=== PATIENT | male | born 1960 | race Caucasian/White ===

== ENCOUNTER 2023-02-25 09:05 | Outpatient (CLI) | payer MEDICARE, BC ==
[2023-02-25] VITALS (7 sets, daily range): BP systolic 145–161; BP diastolic 68–88; PULSE 70–98; RESP 20; O2SAT 97–98
[~2023-02-25] VITALS: Ht 180.3 cm; Wt 100.0 kg
[~2023-02-25 09:05] MED LIST: ALBU6.7H14 IH; ALLO100T PO; AMLO5TAB16 PO; CAPT25TA3 PO; CARV25TA3 PO; CLON1PAT15 TP; CLOP75TA34 PO; DAPA10TA PO; EVOL140P3 SQ; FLO0.4C PO; FLUT1BLS3 INH; FURO20TA4 PO; GLIM4TAB7 PO; HYDR-4069 PO; PANT40TA54 PO; SACU1TAB PO; SEMA1PEN3 SQ; SPIR25TA5 PO
[2023-02-25] MEDS ORDERED: regadenoson 0.4mg/5ml syringe IV ONE (10:45)
[2023-02-25] MEDS ORDERED: aminophylline 250mg/10ml inj. IV ONE (10:45)
[2023-02-25] MEDS ORDERED: nitroGLYCERIN 0.4mg SUBLingual tab SL PRN (11:00)
== END 2023-02-25 23:59 | disposition home or self-care (01) ==
LOC: RAD 09:05
PROVIDERS: ATTEND Internal Medicine Cardiovascular Disease
DX: R94.31 Abnormal electrocardiogram [ECG] [EKG] (principal)
CPT/HCPCS: 78452; 93017; A9500; J0280; J2785

== ENCOUNTER 2024-03-30 13:27 | Inpatient (IN) | payer MEDICARE, OTHER ==
[~2024-03-30] VITALS: Ht 180.3 cm; Wt 116.0 kg
[~2024-03-30 13:27] MED LIST changes: -HYDR-4069 PO; +HYDR25TA90 PO
[2024-03-30] MEDS ORDERED: BUME1TAB34 PO (14:16)
[2024-03-30] MEDS ORDERED: TIRZ5PEN SQ (14:16)
[2024-03-30] MEDS ORDERED: PRAV40TA3 PO (14:16)
[2024-03-30] MEDS ORDERED: LANTUS (14:16)
[2024-03-30] MEDS ORDERED: BLOO-1948 (14:16)
[2024-03-30 14:23] LABS: BASOPHILS # (AUTO) 0.1 X10'3 (0-0.2); BASOPHILS % (AUTO) 1.3 % (0-1); EOSINOPHILS # (AUTO) 0.1 X10'3 (0-0.9); EOSINOPHILS % (AUTO) 1.7 % (0-6); HEMATOCRIT 42.6 % (42.0-52.0); HEMOGLOBIN 14.6 g/dl (14.0-17.9); LYMPHOCYTES # (AUTO) 0.8 X10'3 (1.1-4.8); LYMPHOCYTES % (AUTO) 12.2 % (21-51); MEAN CORPUSCULAR HEMOGLOBIN 29.6 PG (27.0-31.0); MEAN CORPUSCULAR HGB CONC 34.4 g/dL (33.0-36.5); MEAN CORPUSCULAR VOLUME 86.1 FL (78-98); MEAN PLATELET VOLUME 9.4 FL (7.4-10.4); MONOCYTES # (AUTO) 0.3 X10'3 (0-0.9); MONOCYTES % (AUTO) 4.8 % (2-12); NEUTROPHILS # (AUTO) 5.4 X10'3 (1.8-7.7); PLATELET COUNT 289 X10'3 (140-440); RED BLOOD COUNT 4.94 X10'6 (4.70-6.10); RED CELL DISTRIBUTION WIDTH 15.2 % (11.5-14.5); WHITE BLOOD COUNT 6.7 X10'3 (4.5-11.0)
[2024-03-30 14:36] LABS: ALANINE AMINOTRANSFERASE 34 U/L (12-78); ALBUMIN 3.5 G/DL (3.4-5.0); ALKALINE PHOSPHATASE 91 IU/L (46-116); ANION GAP 11 (8-16); ASPARTATE AMINO TRANSFERASE 21 U/L (10-37); BLOOD UREA NITROGEN 26 MG/DL (7-18); BUN/CREATININE RATIO 15.8 (10.0-20.0); CALCIUM 8.9 MG/DL (8.5-10.1); CHLORIDE 104 MMOL/L (99-107); CREATININE 1.65 MG/DL (0.60-1.10); GLUCOSE 201 MG/DL (70-104); POTASSIUM 3.4 MMOL/L (3.5-5.1); SODIUM 140 MMOL/L (135-145); TOTAL CARBON DIOXIDE 25.5 MMOL/L (24-32); TOTAL PROTEIN 7.1 G/DL (6.4-8.2); eCRCL 48 ML/MIN; eGFR 42 ML/MIN
[2024-03-30 14:47] LABS: PRO BRAIN NATRIURETIC PEPTIDE 14909 PG/ML (0-125)
[2024-03-30] MEDS ORDERED: heparin 10,000 units/1 ML INJ IV ONE (15:05)
[2024-03-30] MEDS ORDERED: heparin 25,000 UNIT/250ml bag 250 ML IV PRN (15:15)
[2024-03-30] MEDS ORDERED: albuterol 2.5 MG/3 ML nebule NEB PRN (15:30)
[2024-03-30 15:40] LABS: APTT 25 SECONDS (22-32); PROTHROMBIN TIME 10.9 SECONDS (9.0-12.0)
[2024-03-30] MEDS: heparin 10,000 units/1 ML INJ IV ONE (16:00)
[2024-03-30] MEDS: heparin 25,000 UNIT/250ml bag 250 ML IV PRN (16:02)
[2024-03-30] MEDS: acetaminophen 325mg tablet PO ONE (16:03)
[2024-03-30] MEDS: MESSAGE TO NURSING IV ONE ×2 (16:05→23:14)
[2024-03-30] MEDS ORDERED: acetaminophen 1,000mg/100ml IV 100 ML IV PRN (16:15)
[2024-03-30] MEDS ORDERED: acetaminophen 325mg tablet PO PRN (17:00)
[2024-03-30] MEDS ORDERED: magnesium hydroxide 30ml (MOM) UD suspension PO PRN (17:00)
[2024-03-30] MEDS ORDERED: magnesium Cl slow-release 64mg tablet PO PRN (17:00)
[2024-03-30] MEDS ORDERED: diphenhydrAMINE 25mg capsule PO PRN (17:00)
[2024-03-30] MEDS ORDERED: potassium Cl 20 mEq SR tablet PO PRN ×2 (17:00)
[2024-03-30] MEDS ORDERED: HYDROmorphone inj. 0.5 MG/0.5 ML DISP.SYRIN IV PRN (17:00)
[2024-03-30] MEDS ORDERED: ondansetron 4mg rapidly disintigrating tab PO PRN (17:00)
[2024-03-30] MEDS ORDERED: bisacodyl 10mg suppository rectal RC PRN (17:00)
[2024-03-30] MEDS ORDERED: magnesium sulf-water 4G/100mL 100 ML IV PRN (17:00)
[2024-03-30] MEDS ORDERED: diphenhydrAMINE 50 mg/ml inj IV PRN (17:00)
[2024-03-30] MEDS ORDERED: morphine 2 MG/ML inj. syringe IV PRN (17:00)
[2024-03-30] MEDS ORDERED: ondansetron/PF 4mg/2ml inj IV PRN (17:00)
[2024-03-30] MEDS ORDERED: potassium Cl 40MEQ/1/2NS 520ml 520 ML IV PRN (17:00)
[2024-03-30] MEDS ORDERED: magnesium sulf-water 2g/50mL 50 ML IV PRN (17:00)
[2024-03-30] MEDS ORDERED: mag hydrox/Alum hydrox/simeth 30ml oral suspension PO PRN (17:00)
[2024-03-30] MEDS ORDERED: DEXTROSE 15 GM of carb/4 tabs (each vial/BOTTLE has 4 tablets) PO PRN ×2 (17:15)
[2024-03-30] MEDS ORDERED: glucagon, human recombinant 1mg kit SUBCUT PRN (17:15)
[2024-03-30] MEDS ORDERED: dextrose 50%-water 50ml dispensing syringe IV PRN ×2 (17:15)
[2024-03-30] MEDS: normal saline 1000ml 1,000 ML IV SCH (17:42)
[2024-03-30 17:56] LABS: D-DIMER 1.72 MG/L FEU (0-0.50)
[2024-03-30 18:06] LABS: MAGNESIUM 1.9 MG/DL (1.5-2.4); PHOSPHORUS 3.4 MG/DL (2.3-4.5)
[2024-03-30 18:09] LABS: HEMOGLOBIN A1C 6.2 % (4.5-6.2)
[2024-03-30 18:22] LABS: BILIRUBIN,URINE NEGATIVE (Neg); CLARITY,URINE CLEAR (Clear); COLOR,URINE STRAW (Yellow); GLUCOSE, URINE >=1000 mg/dl (Neg); KETONES,URINE NEGATIVE (Neg); LEUKOCYTE ESTERASE ,URINE NEGATIVE (Neg); NITRITES, URINE NEGATIVE (Neg); OCCULT BLOOD,URINE NEGATIVE (Neg); PROTEIN,URINE NEGATIVE (Neg); UROBILINOGEN,URINE 0.2 E.U/dL (0.2-1.0)
[2024-03-30 18:31] LABS: UA COLLECTION TYPE URINAL
[2024-03-30 18:33] LABS: BACTERIA,URINE FEW /HPF (Neg); RBC,URINE NONE SEEN /HPF (0-2); SQUAMOUS EPITHELIAL CELL,UR NONE SEEN /LPF (FEW); WBC,URINE NONE SEEN /HPF (0-4)
[2024-03-30 18:34] LABS: MUCUS STRANDS NONE SEEN /LPF (Neg)
[2024-03-30 18:45] LABS: THYROID STIMULATING HORMONE 1.58 ulU/ml (0.34-4.50)
[2024-03-30] MEDS: HYDROcodone/acetaminophen 10/325mg tab PO PRN (19:43)
[2024-03-30] MEDS: K and/or MAG REPLACEMENT MC SCH (20:41)
[2024-03-30] MEDS: carVEDilol 12.5mg tablet PO SCH (20:51)
[2024-03-30] MEDS: docusate sod 100mg capsule PO SCH (20:51)
[2024-03-30] MEDS ORDERED: captoPRIL 25mg tablet PO SCH (21:00)
[2024-03-30] MEDS: INSULIN LISPRO 100 UNIT/ML INSULN.PEN MULTI-DOSE SQ SCH (21:00)
[2024-03-30] MEDS ORDERED: temazepam 15mg capsule PO PRN (21:00)
[2024-03-30 21:07] LABS: URINE AMPHETAMINE SCREEN POSITIVE (Neg); URINE BARBITUATE SCREEN NEGATIVE (Neg); URINE BENZODIAZEPINES SCREEN NEGATIVE (Neg); URINE CANNABINOID SCREEN NEGATIVE (Neg); URINE COCAINE SCREEN NEGATIVE (Neg); URINE METHADONE SCREEN NEGATIVE (Neg); URINE OPIATE SCREEN NEGATIVE (Neg); URINE PHENCYCLIDINE SCREEN NEGATIVE (Neg)
[2024-03-30] MEDS: insulin glargine (Lantus) pen - multi-dose SQ SCH (21:25)
[2024-03-30] MEDS: sacubitril/valsartan 24mg-26mg tablet PO SCH (21:27)
[2024-03-30] MEDS: losartan 25mg tablet PO SCH (22:10)
[2024-03-30] MEDS: heparin 10,000 units/1 ML INJ IV PRN (23:11)
[2024-03-31] MEDS: HYDROcodone/acetaminophen 5mg/325mg tablet PO PRN (02:36)
[2024-03-31] MEDS: MESSAGE TO NURSING IV ONE ×2 (04:41→16:03)
[2024-03-31] MEDS: FLUTICASONE IH SCH (08:00)
[2024-03-31] MEDS: VILANTEROL IH SCH (08:00)
[2024-03-31 08:03] LABS: EOSINOPHILS # (AUTO) 0.2 X10'3 (0-0.9); HEMOGLOBIN 14.7 g/dl (14.0-17.9); MEAN CORPUSCULAR HGB CONC 33.9 g/dL (33.0-36.5); MONOCYTES # (AUTO) 0.4 X10'3 (0-0.9); NEUTROPHILS # (AUTO) 6.2 X10'3 (1.8-7.7)
[2024-03-31 08:07] LABS: BASOPHILS % (AUTO) 0.6 % (0-1); EOSINOPHILS % (AUTO) 1.9 % (0-6); HEMATOCRIT 43.3 % (42.0-52.0); LYMPHOCYTES % (AUTO) 13.1 % (21-51); MEAN CORPUSCULAR HEMOGLOBIN 29.5 PG (27.0-31.0); MEAN CORPUSCULAR VOLUME 86.9 FL (78-98); MEAN PLATELET VOLUME 9.3 FL (7.4-10.4); MONOCYTES % (AUTO) 5.1 % (2-12); NEUTROPHILS % (AUTO) 79.3 % (42-75); PLATELET COUNT 261 X10'3 (140-440); RED BLOOD COUNT 4.99 X10'6 (4.70-6.10); RED CELL DISTRIBUTION WIDTH 14.6 % (11.5-14.5); WHITE BLOOD COUNT 7.9 X10'3 (4.5-11.0)
[2024-03-31 08:45] LABS: ALANINE AMINOTRANSFERASE 32 U/L (12-78); ALKALINE PHOSPHATASE 75 IU/L (46-116); ANION GAP 10 (8-16); ASPARTATE AMINO TRANSFERASE 114 U/L (10-37); BLOOD UREA NITROGEN 29 MG/DL (7-18); BUN/CREATININE RATIO 18.1 (10.0-20.0); CALCIUM 8.2 MG/DL (8.5-10.1); CHLORIDE 106 MMOL/L (99-107); CHOL/HDL RATIO 2.6 (0.00-4.99); CHOLESTEROL 108 MG/DL (0-200); GLUCOSE 83 MG/DL (70-104); HDL CHOLESTEROL 41 MG/DL (35-60); LDL CHOLESTEROL 57 MG/DL (50-100); MAGNESIUM 1.8 MG/DL (1.5-2.4); POTASSIUM 3.6 MMOL/L (3.5-5.1); SODIUM 143 MMOL/L (135-145); TOTAL CARBON DIOXIDE 27.3 MMOL/L (24-32); TRIGLYCERIDES 82 MG/DL (20-135); eCRCL 50 ML/MIN; eGFR 44 ML/MIN
[2024-03-31] MEDS: tamsulosin 0.4mg capsule PO SCH (08:52)
[2024-03-31 08:53] LABS: ALBUMIN 2.9 G/DL (3.4-5.0); ALBUMIN/GLOBULIN RATIO 0.9 (1.1-1.5)
[2024-03-31] MEDS: DAPAGLIFLOZIN 10MG TABLET PO SCH (08:53)
[2024-03-31] MEDS: pantoprazole 40mg Tablet.DR PO SCH (08:53)
[2024-03-31] MEDS: allopurinol 100mg tablet PO SCH (08:53)
[2024-03-31] MEDS: amLODIPine 5mg tablet PO SCH (08:53)
[2024-03-31] MEDS: aspirin 81mg, enteric-coated 1 TAB TABLET.DR PO SCH (08:53)
[2024-03-31] MEDS: spironolactone 25 MG tablet PO SCH (08:54)
[2024-03-31 17:20] VITALS: PULSE 60; RESP 18; O2SAT 96
[2024-03-31 18:30] VITALS: BP 101/69; PULSE 64; RESP 20; TEMP 97.6; O2SAT 99
[2024-03-31 19:44] VITALS: PULSE 64; RESP 18; O2SAT 94
[2024-03-31 20:47] VITALS: BP 99/66; PULSE 69
[2024-03-31] MEDS: apixaban 2.5mg tablet PO SCH (21:05)
[2024-03-31 22:00] VITALS: BP 97/66; PULSE 71; RESP 17; TEMP 97.7; O2SAT 98
[2024-04-01] VITALS (15 sets, daily range): BP systolic 76–113; BP diastolic 48–77; PULSE 60–79; RESP 16–21; TEMP 96.9–98; O2SAT 93–100
[2024-04-01] MEDS: morphine 2 MG/ML inj. syringe IV PRN (01:44)
[2024-04-01] MEDS: mag hydrox/Alum hydrox/simeth 30ml oral suspension PO ONE (01:50)
[2024-04-01 04:29] LABS: ALANINE AMINOTRANSFERASE 26 U/L (12-78); ALBUMIN 2.8 G/DL (3.4-5.0); ALBUMIN/GLOBULIN RATIO 0.9 (1.1-1.5); ALKALINE PHOSPHATASE 79 IU/L (46-116); ANION GAP 6 (8-16); ASPARTATE AMINO TRANSFERASE 62 U/L (10-37); BILIRUBIN,TOTAL 0.6 MG/DL (0.1-1.0); BLOOD UREA NITROGEN 29 MG/DL (7-18); BUN/CREATININE RATIO 18.2 (10.0-20.0); CALCIUM 8.1 MG/DL (8.5-10.1); CHLORIDE 107 MMOL/L (99-107); CREATININE 1.59 MG/DL (0.60-1.10); GLUCOSE 74 MG/DL (70-104); MAGNESIUM 1.8 MG/DL (1.5-2.4); POTASSIUM 3.7 MMOL/L (3.5-5.1); SODIUM 141 MMOL/L (135-145); TOTAL CARBON DIOXIDE 28.2 MMOL/L (24-32); TOTAL PROTEIN 5.9 G/DL (6.4-8.2); eCRCL 50 ML/MIN; eGFR 44 ML/MIN
[2024-04-01] MEDS ORDERED: heparin 10,000 units/1 ML INJ IV PRN (05:35)
[2024-04-01] MEDS: heparin 25,000 UNIT/250ml bag 250 ML IV PRN (05:49)
[2024-04-01] MEDS: MESSAGE TO NURSING IV ONE (06:07)
[2024-04-01] MEDS: isosorbide dinitrate 5mg tablet PO SCH (08:03)
[2024-04-01 08:36] LABS: BASOPHILS # (AUTO) 0.1 X10'3 (0-0.2); EOSINOPHILS # (AUTO) 0.1 X10'3 (0-0.9); HEMATOCRIT 43.5 % (42.0-52.0); HEMOGLOBIN 14.7 g/dl (14.0-17.9); LYMPHOCYTES # (AUTO) 0.9 X10'3 (1.1-4.8); LYMPHOCYTES % (AUTO) 9.9 % (21-51); MEAN CORPUSCULAR HEMOGLOBIN 29.4 PG (27.0-31.0); MEAN CORPUSCULAR HGB CONC 33.8 g/dL (33.0-36.5); MEAN CORPUSCULAR VOLUME 86.9 FL (78-98); MEAN PLATELET VOLUME 9.9 FL (7.4-10.4); MONOCYTES # (AUTO) 0.5 X10'3 (0-0.9); MONOCYTES % (AUTO) 5.6 % (2-12); NEUTROPHILS # (AUTO) 7.2 X10'3 (1.8-7.7); NEUTROPHILS % (AUTO) 82.5 % (42-75); PLATELET COUNT 251 X10'3 (140-440); RED BLOOD COUNT 5.01 X10'6 (4.70-6.10); RED CELL DISTRIBUTION WIDTH 14.9 % (11.5-14.5); WHITE BLOOD COUNT 8.7 X10'3 (4.5-11.0)
[2024-04-01] MEDS ORDERED: LIDOcaine 1% 30ml preserv. free vial ONE (10:55)
[2024-04-01] MEDS ORDERED: fentaNYL/PF 50MCG/1 ML 2ML syringe ONE (10:55)
[2024-04-01] MEDS ORDERED: verapamil 2.5 mg/ml inj IV ONE (10:55)
[2024-04-01] MEDS ORDERED: iohexol 350MG/ML 100ml bottle IV ONE ×3 (10:56→12:22)
[2024-04-01] MEDS ORDERED: iohexol 350 MG/ML 50ML vial IV ONE (10:56)
[2024-04-01] MEDS ORDERED: heparin 1,000unit/ml 10ml vial 10 ML ONE (10:56)
[2024-04-01] MEDS ORDERED: midazolam 1 mg/ML 2ml injection ONE (10:56)
[2024-04-01] MEDS ORDERED: nitroGLYCERIN 500mcg/5mL D5W 5 ML IV ONE ×2 (10:58→12:34)
[2024-04-01] MEDS: acetylcysteine 200 MG/ml 4ml vial PO SCH (11:07)
[2024-04-01] MEDS: sodium bicarbonate 1meq/ml inj 150 ML in sodium chloride 0.45% 1,000 ML IV ONE (11:08)
[2024-04-01] MEDS ORDERED: DOBUTamine-DoBUTrex 500mg/D5W 250 ML IV ONE (11:44)
[2024-04-01] MEDS ORDERED: clopidogrel 300mg tablet ONE (12:50)
[2024-04-01] MEDS: DOBUTamine-DoBUTrex 500mg/D5W 250 ML IV SCH (13:50)
[2024-04-01] MEDS: clopidogrel 300mg tablet PO ONE (13:55)
[2024-04-01] MEDS: bumetanide 1mg tablet PO SCH (20:21)
[2024-04-01] MEDS: acetaminophen 325mg tablet PO PRN (22:05)
[2024-04-01] MEDS: sodium bicarbonate 1meq/ml inj 150 ML in sodium chloride 0.45% 1,000 ML IV SCH (22:06)
[2024-04-02] VITALS (12 sets, daily range): BP systolic 82–118; BP diastolic 40–75; PULSE 64–78; RESP 16–20; TEMP 96.7–97.6; O2SAT 97–99
[2024-04-02] MEDS: atorvastatin 10mg tablet PO SCH (10:41)
[2024-04-02] MEDS: allopurinol 100mg tablet PO SCH (10:41)
[2024-04-02] MEDS: aspirin 81mg, enteric-coated 1 TAB TABLET.DR PO SCH (10:42)
[2024-04-02] MEDS: clopidogrel 75mg tablet PO SCH (10:42)
[2024-04-02] MEDS: DOBUTamine-DoBUTrex 500mg/D5W 250 ML IV SCH (12:09)
[2024-04-02] MEDS ORDERED: CLOP-32 PO (15:11)
[2024-04-02] MEDS ORDERED: ASPI81TA52 PO (15:11)
== END 2024-04-02 16:15 | disposition home or self-care (01) | DRG 321 ==
LOC: ER 13:28 → ED HOLD 17:12 → PCU 3S 03-31 18:30
PROVIDERS: ADMIT Family Medicine; ATTEND Family Medicine
PROC: 027135Z Dilation of Coronary Artery, Two Arteries with Two Drug-eluting Intraluminal Devices, Percutaneous Approach (ICD-10-PCS; principal; 2024-04-01)
PROC: 4A023N7 Measurement of Cardiac Sampling and Pressure, Left Heart, Percutaneous Approach (ICD-10-PCS; 2024-04-01)
PROC: B2111ZZ Fluoroscopy of Multiple Coronary Arteries using Low Osmolar Contrast (ICD-10-PCS; 2024-04-01)
PROC: B2151ZZ Fluoroscopy of Left Heart using Low Osmolar Contrast (ICD-10-PCS; 2024-04-01)
DX: I11.0 Hypertensive heart disease with heart failure (principal); I21.A1 Myocardial infarction type 2; I50.23 Acute on chronic systolic (congestive) heart failure; F02.83 Dementia in other diseases classified elsewhere, unspecified severity, with mood disturbance; F02.84 Dementia in other diseases classified elsewhere, unspecified severity, with anxiety; I42.9 Cardiomyopathy, unspecified; E78.00 Pure hypercholesterolemia, unspecified; E87.6 Hypokalemia; F15.129 Other stimulant abuse with intoxication, unspecified; G30.9 Alzheimer's disease, unspecified; G47.33 Obstructive sleep apnea (adult) (pediatric); J44.9 Chronic obstructive pulmonary disease, unspecified; E11.65 Type 2 diabetes mellitus with hyperglycemia; K21.9 Gastro-esophageal reflux disease without esophagitis; M10.9 Gout, unspecified; N40.0 Benign prostatic hyperplasia without lower urinary tract symptoms; Z79.4 Long term (current) use of insulin; Z82.3 Family history of stroke; Z82.5 Family history of asthma and other chronic lower respiratory diseases; I25.2 Old myocardial infarction; Z82.49 Family history of ischemic heart disease and other diseases of the circulatory system; Z83.3 Family history of diabetes mellitus; Z86.73 Personal history of transient ischemic attack (TIA), and cerebral infarction without residual deficits; Z87.442 Personal history of urinary calculi; Z95.1 Presence of aortocoronary bypass graft; Z95.810 Presence of automatic (implantable) cardiac defibrillator
CPT/HCPCS: 93306; 93458; 96365; 96376; 99291; C9600; 36415; 70450; 71045; 76937; 80053; 80061; 80305; 81001; 82948; 83036; 83735; 83880; 84100; 84443; 84484; 85025; 85347; 85379; 85610; 85730; 87081; 93005; 94760; 99152; 99153; A4615; A6258; C1725; C1751; C1769; C1874; G0378; J1250; J1644; J1815; J2003; J2250; J2270; J3010; J3490; J7030; Q9967